=== PATIENT | female | born 1975 | race Caucasian/White ===

== ENCOUNTER → 2019-12-31 11:05 | Outpatient (CLI) | payer OTHER, SELFPAY ==
[2019-12-31 14:29] LABS: Follicle Stimulating Hormone 5.6 mIU/mL; Luteinizing Hormone 10.9 mIU/mL; Prolactin 14.3 ng/mL; T4 Free Direct 1.16 ng/dL (0.76-1.46); Thyroid Stim Hormone (TSH) 1.12 uIU/mL (0.358-3.74)
[2020-01-03 05:29] LABS: Testosterone Free 1.1 pg/mL (0.0-4.2)
== END ==
PROVIDERS: Visit Provider Student in an Organized Health Care Education/Training Program
DX: L65.9 Nonscarring hair loss, unspecified (principal)
CPT/HCPCS: 36415; 82627; 83001; 83002; 84146; 84402; 84439; 84443; 82626

== ENCOUNTER → 2020-01-07 10:53 | Outpatient (CLI) | payer OTHER, SELFPAY ==
[2020-01-07 12:58] LABS: Vitamin B12 566 pg/mL (211-911)
[2020-01-07 13:47] LABS: Ferritin 20 ng/mL (8-252)
== END ==
PROVIDERS: Visit Provider Student in an Organized Health Care Education/Training Program
DX: L65.9 Nonscarring hair loss, unspecified (principal)
CPT/HCPCS: 82607; 82728; 82746

== ENCOUNTER → 2020-03-10 | Outpatient (CLI) | payer OTHER, SELFPAY ==
[2020-03-12 12:34] LABS: HPV APTIMA, High Risk Negative (Negative)
[2020-03-12 12:36] LABS: HPV Reflexed? YES, CHARGE PATIENT
== END | disposition home or self-care (01) ==
LOC: LABSPEC 09:52
PROVIDERS: Visit Provider Student in an Organized Health Care Education/Training Program
DX: Z12.4 Encounter for screening for malignant neoplasm of cervix (principal)
CPT/HCPCS: 87624; 88175; G0145